=== PATIENT | female | born 1945 ===

== ENCOUNTER 2023-03-15 21:23 | Emergency (ER) | payer OTHER ==
[2023-03-15 21:32] VITALS: RESP 18
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
[2023-03-15] MEDS ORDERED: traMADol 50 MG STARTER PACK 3 TAB BTL PO STA (23:15)
[2023-03-15 23:29] LABS: Appearance,Urine Clear (Clear); Bilirubin,Urine Negative (Negative); Blood,Urine Negative (Negative); Color,Urine Light Yellow; Glucose,Urine (UA) Negative (Negative); Ketones,Urine Negative (Negative); Leukocyte Esterase,Urine Small (Negative); Mucus,Urine Rare /hpf; Nitrite,Urine Negative (Negative); PH, Urine 6.5 (5.0-8.0); Protein,Urine Negative (Negative); RBC,Urine 1 /hpf (0-5); Specific Gravity,Urine 1.011 (1.001-1.035); Squamous Epithelial Cell,Urine 1 /hpf (0-4); Urobilinogen,Urine <2.0 mg/dL (<2.0); WBC,Urine 5 /hpf (0-5)
[2023-03-16 00:11] VITALS: BP 106/73; PULSE 78
[2023-03-16 00:17] VITALS: TEMP 98.3
== END 2023-03-15 23:58 | disposition home or self-care (01) ==
LOC: EC 21:23
DX: S20.211A Contusion of right front wall of thorax, initial encounter (principal); S30.0XXA Contusion of lower back and pelvis, initial encounter; Z88.8 Allergy status to other drugs, medicaments and biological substances; V49.9XXA Car occupant (driver) (passenger) injured in unspecified traffic accident, initial encounter; Y92.410 Unspecified street and highway as the place of occurrence of the external cause
CPT/HCPCS: 71045; 72170; 81001; 99284